=== PATIENT | female | born 1975 | race American Indian/Alaskan Native ===

== ENCOUNTER 2016-04-07 12:21 | Outpatient (CLI) | payer OTHER ==
--- NOTE | 2016-04-07 13:50 | Mammography Report ---
Digital diagnostic mammogram with CAD and targeted left breast ultrasound. History: There are no prior studies available for comparison. The patient is an inmate at a correctional [facility]. The patient gives a history of an abnormal left mammogram. Findings: There is an ovoid shaped mass in the left breast at approximately 2:30 measuring approximately 1.8 x 0.9 CM. The margins are smooth. This finding persists on spot compression images. There are no associated microcalcifications, and no architectural distortion is seen. Targeted sonographic evaluation demonstrates an ovoid shaped hypoechoic mass which is sharply circumscribed measuring 2.1 x 0.5 x 1.5 cm. There is no acoustic shadowing or other suspicious features. Impression: Benign-appearing solid mass in the left breast at 2:30 position. This most likely represents a fibroadenoma. BI-RADS code: 3. Recommendation: A followup ultrasound in 6 months is recommended to reevaluate this finding.
== END 2016-04-07 12:22 | disposition home or self-care (01) ==
LOC: MAMMO 12:21
PROVIDERS: ATTEND Family Medicine
DX: N63 Unspecified lump in breast (principal); R92.8 Other abnormal and inconclusive findings on diagnostic imaging of breast
CPT/HCPCS: 76642; G0206

== ENCOUNTER 2016-09-29 09:12 | Outpatient (CLI) | payer OTHER ==
--- NOTE | 2016-09-29 10:15 | Ultrasound Report ---
Left breast ultrasound: Short-term followup. Imaging in the 3:00 location again identifies a well-circumscribed and elongated inhomogeneous hypodensity. The current maximum dimension measured is 17.6 mm compared to prior maximum length of 2.1 cm. No change in the echo pattern. No new findings. Impressions: Stable lesion. No suspicion. Recommendation: Followup examination in one year. BI-RADS CATEGORY: 3 = Probably benign ACR BI-RADS MAMMOGRAPHIC CODES: 0 = Needs additional imaging evaluation; 1 = Negative; 2 = Benign; 3 = Probably benign; 4 = Suspicious; 5 = Malignant; 6 = Known biopsy-proven malignancy COMMENT: 1. Dense breast tissue, i.e., adenosis, fibrocystic changes, etc., may obscure an underlying neoplasm. 2. Approximately 10% of cancers are not detected with mammography. 3. A negative mammography report should not delay biopsy if a clinically suspicious mass is present.
== END 2016-09-29 09:13 | disposition home or self-care (01) ==
LOC: US 09:12
PROVIDERS: ATTEND Family Medicine
DX: N64.89 Other specified disorders of breast (principal)